=== PATIENT | female | born 2000 ===

== ENCOUNTER 2019-03-18 04:55 | Emergency (ER) | payer SELFPAY ==
[2019-03-18] MEDS ORDERED: Ondansetron ODT 8 MG TAB ONE (05:04)
== END 2019-03-18 05:10 | disposition home or self-care (01) ==
LOC: ERS 04:55
DX: F10.129 Alcohol abuse with intoxication, unspecified (principal); F41.9 Anxiety disorder, unspecified; F32.9 Major depressive disorder, single episode, unspecified
CPT/HCPCS: 99283